=== PATIENT | female | born 1995 | race African-American/Black ===

== ENCOUNTER 2018-05-13 14:33 | Emergency (ER) | payer MEDICAID ==
[~2018-05-13] VITALS: Ht 162.6 cm; Wt 68.2 kg
[2018-05-13 14:45] VITALS: BP 110/84; Ht 162.6 cm; Wt 68.2 kg
== END 2018-05-13 17:52 | disposition left against medical advice (07) ==
LOC: D.ER 14:33
DX: R05 Cough (principal)

== ENCOUNTER 2020-07-21 11:29 | Emergency (ER) | payer OTHER ==
[~2020-07-21] VITALS: Ht 162.6 cm; Wt 70.5 kg
[2020-07-21 11:41] VITALS: BP 105/59; Ht 162.6 cm; Wt 70.5 kg
[2020-07-21 12:39] LABS: HCG URINE NEGATIVE (NEGATIVE)
[2020-07-21 12:43] LABS: BILIRUBIN NEGATIVE (NEGATIVE); KETONE NEGATIVE (NEGATIVE); NITRITE POSITIVE (NEGATIVE); UROBILINOGEN NORMAL mg/dL (< 2)
[2020-07-21 12:44] LABS: BACTERIA MANY HPF (NONE SEEN); SQUAMOUS EPITHELIAL OCC HPF (0-4); WHITE CELLS - URINE >50 HPF (0-4)
[2020-07-21] MEDS ORDERED: HYDROCODON-ACE1 EA10 PO (14:00)
[2020-07-21] MEDS ORDERED: LEVAQUIN750 MG PO (14:02)
== END 2020-07-21 14:19 | disposition home or self-care (01) ==
LOC: D.ER 11:29
PROVIDERS: Family Medicine
DX: N39.0 Urinary tract infection, site not specified (principal); R10.32 Left lower quadrant pain